=== PATIENT | female | born 1995 | race Caucasian/White ===

== ENCOUNTER 2021-10-16 16:23 | Emergency (ER) | payer OTHER ==
[~2021-10-16] VITALS: Ht 162.6 cm; Wt 61.8 kg
[2021-10-16 16:24] VITALS: BP 127/73
[2021-10-16] MEDS ORDERED: KETOROLAC 30 MG/ML 1ML VIAL IM ONE (17:40)
== END 2021-10-16 18:25 | disposition home or self-care (01) ==
LOC: M ED 16:23
DX: S60.112A Contusion of left thumb with damage to nail, initial encounter (principal); S60.222A Contusion of left hand, initial encounter; W22.8XXA Striking against or struck by other objects, initial encounter; Y92.89 Other specified places as the place of occurrence of the external cause; Y99.0 Civilian activity done for income or pay
CPT/HCPCS: 73130; 96372; 99282; J1885

== ENCOUNTER 2021-12-23 14:13 | Emergency (ER) | payer OTHER ==
[~2021-12-23] VITALS: Ht 160 cm; Wt 61.9 kg
[2021-12-23] MEDS ORDERED: SERT25TA85 PO (14:20)
[2021-12-23 17:36] VITALS: BP 132/69
== END 2021-12-23 17:47 | disposition home or self-care (01) ==
LOC: M ED 14:13
DX: S90.32XA Contusion of left foot, initial encounter (principal); W22.8XXA Striking against or struck by other objects, initial encounter; Y92.018 Other place in single-family (private) house as the place of occurrence of the external cause; F41.9 Anxiety disorder, unspecified; Z79.899 Other long term (current) drug therapy

== ENCOUNTER 2022-06-12 11:06 | Emergency (ER) | payer OTHER ==
[~2022-06-12] VITALS: Ht 162.6 cm; Wt 63.0 kg
[~2022-06-12 11:06] MED LIST: SERT25TA85 PO
[2022-06-12] MEDS ORDERED: KETOROLAC 60MG 2ML VIAL IM ONE (12:40)
[2022-06-12] MEDS ORDERED: CYCL-707 PO (13:18)
[2022-06-12 13:33] VITALS: BP 109/68
== END 2022-06-12 13:34 | disposition home or self-care (01) ==
LOC: M ED 11:06
DX: S76.012A Strain of muscle, fascia and tendon of left hip, initial encounter (principal); W00.0XXA Fall on same level due to ice and snow, initial encounter; F41.9 Anxiety disorder, unspecified; Z79.899 Other long term (current) drug therapy; Z98.890 Other specified postprocedural states
CPT/HCPCS: 72110; 72220; 73502; 96372; 99283; J1885

== ENCOUNTER 2022-08-19 10:57 | Emergency (ER) | payer OTHER ==
[~2022-08-19] VITALS: Ht 162.6 cm; Wt 62.2 kg
[~2022-08-19 10:57] MED LIST changes: +CYCL-707 PO
[2022-08-19 12:28] LABS: BASO # 0.1 10^3/uL (0.0-0.2); BASO % 0.6 % (0.0-1.0); EOS # 0.1 10^3/uL (0.0-0.5); HEMATOCRIT 40.7 % (36.0-47.0); HEMOGLOBIN 13.1 g/dl (12.0-15.5); LYMPH # 1.3 10^3/uL (1.5-5.0); LYMPH % 11.4 % (24.0-44.0); MEAN CORPUSCULAR HEMOGLOBIN 28.2 pg (27.0-33.0); MEAN CORPUSCULAR HGB CONC 32.2 g/dl (32.0-36.5); MEAN CORPUSCULAR VOLUME 87.5 fl (80.0-96.0); MONO # 0.7 10^3/uL (0.0-0.8); MONO % 6.4 % (2.0-8.0); NEUTROPHILS # 8.8 10^3/uL (1.5-8.5); NEUTROPHILS % 80.1 % (36.0-66.0); PLATELET COUNT, AUTOMATED 277 10^3/uL (150-450); RED BLOOD COUNT 4.65 10^6/uL (4.00-5.40)
[2022-08-19 12:52] LABS: LIPASE 33 U/L (12-53)
[2022-08-19 12:54] LABS: ALBUMIN 4.1 G/DL (3.2-5.2); ALKALINE PHOSPHATASE 60 U/L (46-116); ALT/SGPT 10 U/L (7.0-40); AST/SGOT 15 U/L (<34); BILIRUBIN,DIRECT 0.2 MG/DL (<0.4); BILIRUBIN,TOTAL 0.4 MG/DL (0.3-1.2); BLOOD UREA NITROGEN 9 MG/DL (9-23); CARBON DIOXIDE LEVEL 27 MMOL/L (20-31); CHLORIDE LEVEL 105 MMOL/L (98-107); CREATININE FOR GFR 0.73 MG/DL (0.55-1.30); GLOMERULAR FILTRATION RATE > 60.0 (>60); GLUCOSE, FASTING 104 MG/DL (60-100); SODIUM LEVEL 137 MMOL/L (136-145); TOTAL PROTEIN 7.6 G/DL (5.7-8.2)
[2022-08-19 13:14] LABS: HCG, SERUM QUALITATIVE NEGATIVE (NEGATIVE)
[2022-08-19] MEDS ORDERED: KETOROLAC 30 MG/ML 1ML VIAL IV ONE (14:00)
[2022-08-19] MEDS ORDERED: NS 1,000 ML IV ONE (14:00)
[2022-08-19] MEDS ORDERED: ONDANSETRON 4MG 2ML VIAL IV ONE (14:00)
[2022-08-19] MEDS ORDERED: BACT800T5 PO (14:54)
[2022-08-19] MEDS ORDERED: BACTRIM 160MG/800MG DS TAB PO ONE (14:55)
[2022-08-19 15:10] VITALS: BP 110/60
== END 2022-08-19 15:15 | disposition home or self-care (01) ==
LOC: M ED 10:57
DX: N39.0 Urinary tract infection, site not specified (principal); N80.9 Endometriosis, unspecified; R41.840 Attention and concentration deficit
CPT/HCPCS: 74177; 80048; 80076; 81000; 81015; 83690; 84703; 85025; 87086; 96374; 96375; 99284; J1885; J2405

== ENCOUNTER 2023-01-29 10:05 | Day surgery (SDC) | payer OTHER ==
[~2023-01-29] VITALS: Ht 165.1 cm; Wt 60.2 kg
[~2023-01-29 10:05] MED LIST changes: +BACT800T5 PO
[2023-01-29] MEDS ORDERED: LR 1,000 ML IV SCH ×2 (10:35→13:55)
[2023-01-29] MEDS ORDERED: ACET1TAB55 PO (10:48)
[2023-01-29] MEDS ORDERED: PRENTAB7 PO (10:48)
[2023-01-29 11:01] LABS: HEMATOCRIT 40.5 % (36.0-47.0); HEMOGLOBIN 13.2 g/dl (12.0-15.5); MEAN CORPUSCULAR HEMOGLOBIN 28.2 pg (27.0-33.0); MEAN CORPUSCULAR HGB CONC 32.6 g/dl (32.0-36.5); MEAN CORPUSCULAR VOLUME 86.5 fl (80.0-96.0); PLATELET COUNT, AUTOMATED 320 10^3/uL (150-450); RED BLOOD COUNT 4.68 10^6/uL (4.00-5.40)
[2023-01-29] MEDS ORDERED: SILVER NITRATE APPLICATOR (1 = QTY 10) As Ordered ONE (12:59)
[2023-01-29] MEDS ORDERED: LIDOCAINE 1% SDV 30ML VIAL As Ordered ONE (12:59)
[2023-01-29] MEDS ORDERED: ACETAMINOPHEN 1000MG 100ML IV BAG As Ordered ONE (13:18)
[2023-01-29] MEDS ORDERED: MIDAZOLAM INJ 2MG/2ML VIAL As Ordered ONE (13:18)
[2023-01-29] MEDS ORDERED: dexmedeTOMIDine (4MCG/ML)200MCG/50ML BTL (PRECEDEX) As Ordered ONE (13:18)
[2023-01-29] MEDS ORDERED: fentaNYL 100 MCG/2 ML INJECTION As Ordered ONE (13:18)
[2023-01-29] MEDS ORDERED: LIDOCAINE 2% 100MG/5ML SDV (FOR ANES.) As Ordered ONE (13:18)
[2023-01-29] MEDS ORDERED: ONDANSETRON 4MG 2ML VIAL As Ordered ONE (13:18)
[2023-01-29] MEDS ORDERED: propofoL 200 MG/20 ML VIAL As Ordered ONE (13:18)
[2023-01-29] MEDS ORDERED: KETOROLAC 60MG 2ML VIAL As Ordered ONE (13:18)
[2023-01-29] MEDS ORDERED: oxyCODONE 5MG TAB PO PRN (13:55)
[2023-01-29] MEDS ORDERED: HYDROMORPHONE HCL 0.5 MG/ 0.5 ML SYRINGE IV PRN (13:55)
[2023-01-29] MEDS ORDERED: ONDANSETRON 4MG 2ML VIAL IV PRN (13:55)
[2023-01-29] MEDS ORDERED: fentaNYL 100 MCG/2 ML INJECTION IV PRN (13:55)
[2023-01-29 15:10] VITALS: BP 119/63; TEMP 97.9; O2SAT 100
== END 2023-01-29 15:21 | disposition home or self-care (01) ==
LOC: M SDC 10:05
PROVIDERS: ATTEND Obstetrics & Gynecology
DX: N84.0 Polyp of corpus uteri (principal); N96 Recurrent pregnancy loss
CPT/HCPCS: 36415; 58558; 81025; 85027; 86850; 86900; 86901; 88305; J0131; J1100; J1885; J2250; J2405; J3010

== ENCOUNTER 2023-02-24 17:06 | Inpatient (IN) | payer OTHER ==
[~2023-02-24] VITALS: Ht 160 cm; Wt 60.0 kg
[~2023-02-24 17:06] MED LIST changes: +ACET1TAB55 PO; +PRENTAB7 PO
[2023-02-24 18:36] LABS: HEMATOCRIT 40.7 % (36.0-47.0); HEMOGLOBIN 13.3 g/dl (12.0-15.5); MEAN CORPUSCULAR HEMOGLOBIN 27.9 pg (27.0-33.0); MEAN CORPUSCULAR HGB CONC 32.7 g/dl (32.0-36.5); MEAN CORPUSCULAR VOLUME 85.5 fl (80.0-96.0); PLATELET COUNT, AUTOMATED 300 10^3/uL (150-450); RED BLOOD COUNT 4.76 10^6/uL (4.00-5.40); WHITE BLOOD COUNT 11.9 10^3/uL (4.0-10.0)
[2023-02-24 19:01] LABS: AMPHETAMINES LEVEL URINE NEGATIVE (NEGATIVE); BARBITURATES URINE NEGATIVE (NEGATIVE); COCAINE METABOLITE URINE NEGATIVE (NEGATIVE); METHADONE URINE NEGATIVE (NEGATIVE)
[2023-02-24 19:02] LABS: BENZODIAZEPINES URINE NEGATIVE (NEGATIVE); CANNABINOIDS URINE NEGATIVE (NEGATIVE); OPIATES URINE NEGATIVE (NEGATIVE); PHENCYCLIDINE URINE NEGATIVE (NEGATIVE)
[2023-02-24 19:02] LABS: ETHYL ALCOHOL (ETHANOL) 0.007 % (0.000-0.010)
[2023-02-24 19:04] LABS: ALBUMIN 4.1 G/DL (3.2-5.2); ALKALINE PHOSPHATASE 64 U/L (46-116); ALT/SGPT 16 U/L (7.0-40); AST/SGOT 23 U/L (<34); BILIRUBIN,DIRECT 0.2 MG/DL (<0.4); BILIRUBIN,TOTAL 0.5 MG/DL (0.3-1.2); BLOOD UREA NITROGEN 9 MG/DL (9-23); CALCIUM LEVEL 9.1 MG/DL (8.5-10.1); CARBON DIOXIDE LEVEL 25 MMOL/L (20-31); CHLORIDE LEVEL 106 MMOL/L (98-107); CREATININE FOR GFR 0.69 MG/DL (0.55-1.30); GLOMERULAR FILTRATION RATE > 60.0 (>60); GLUCOSE, FASTING 83 MG/DL (60-100); POTASSIUM SERUM 3.8 MMOL/L (3.5-5.1); SALICYLATE LEVEL < 3.0 MG/DL (<30); SODIUM LEVEL 140 MMOL/L (136-145); TOTAL PROTEIN 7.7 G/DL (5.7-8.2)
[2023-02-24 19:08] LABS: THYROID STIMULATING HORMONE 1.928 uIU/ML (0.55-4.78)
[2023-02-24 19:32] LABS: HCG, SERUM QUALITATIVE NEGATIVE (NEGATIVE)
[2023-02-24] MEDS ORDERED: IBUPROFEN 400MG TAB PO PRN (21:55)
[2023-02-24] MEDS ORDERED: MOM 30ML SUSPENSION UDC PO PRN (21:55)
[2023-02-24] MEDS ORDERED: MAALOX 30 ML SUSP *UDC PO PRN (21:55)
[2023-02-24] MEDS ORDERED: diphenhydrAMINE 25MG CAP PO PRN (21:55)
[2023-02-24] MEDS ORDERED: traZODone 50 MG TAB PO PRN (21:55)
[2023-02-24] MEDS ORDERED: OLANZapine ORAL DISINTEGRATING TAB 5MG PO PRN (21:55)
[2023-02-24] MEDS ORDERED: ACETAMINOPHEN TAB 650MG DOSE (2X325MG) PO PRN (21:55)
[2023-02-24] MEDS ORDERED: MULTTAB20 PO (22:01)
[2023-02-24] MEDS ORDERED: HOME MED LIST COMPLETE! XX SCH (22:05)
[2023-02-25 07:00] VITALS: BP 124/66; TEMP 98.3; O2SAT 99
[2023-02-25] MEDS: SERTRALINE HCL 50 MG TAB PO SCH (11:00)
[2023-02-25] MEDS ORDERED: INFLUENZA QUADRIVALENT PF VACCINE 0.5ML SYRINGE IM.IMMUN ONE (12:00)
[2023-02-25 16:35] VITALS: BP 117/64; TEMP 98.9; O2SAT 98
[2023-02-26 06:09] VITALS: BP 110/55; TEMP 98.6; O2SAT 97
[2023-02-26] MEDS: SERTRALINE HCL 50 MG TAB PO SCH (08:00)
[2023-02-26 18:30] VITALS: BP 124/66; TEMP 98.1
[2023-02-27 06:16] VITALS: BP 107/51; TEMP 98.6; O2SAT 98
[2023-02-27] MEDS ORDERED: SERT50TA29 PO (07:59)
[2023-02-27] MEDS ORDERED: TRAZ-252 PO (07:59)
[2023-02-27] MEDS: SERTRALINE HCL 50 MG TAB PO SCH (09:19)
== END 2023-02-27 13:40 | disposition home or self-care (01) | DRG 881 ==
LOC: M ED 17:06 → M ED INP 21:55 → M PSY 02-25 02:37
PROVIDERS: ADMIT Student in an Organized Health Care Education/Training Program; ATTEND Student in an Organized Health Care Education/Training Program
DX: F32.A Depression, unspecified (principal); F43.20 Adjustment disorder, unspecified; Z91.82 Personal history of military deployment; Z63.0 Problems in relationship with spouse or partner; Z63.4 Disappearance and death of family member; Z91.414 Personal history of adult intimate partner abuse

== ENCOUNTER → 2023-05-13 | Outpatient (REF) | payer OTHER ==
[~2023-05-13] MED LIST changes: +MULTTAB20 PO; +SERT50TA29 PO; +TRAZ-252 PO
[2023-05-13 17:45] LABS: APPEARANCE, URINE HAZY (CLEAR); BACTERIA, URINE AUTO NEGATIVE (NEGATIVE); BILIRUBIN, URINE AUTO NEGATIVE (NEGATIVE); BLOOD, URINE BLOOD NEGATIVE (NEGATIVE); COLOR, URINE YELLOW (YELLOW); GLUCOSE, URINE (UA) AUTO NEGATIVE (NEGATIVE); KETONE, URINE AUTO TRACE mg/dL (NEGATIVE); LEUKOCYTE ESTERASE, URINE AUTO NEGATIVE (NEGATIVE); MUCUS, URINE SMALL (NEGATIVE); NITRITE, URINE AUTO NEGATIVE (NEGATIVE); PROTEIN, URINE AUTO 1+ mg/dL (NEGATIVE); RBC, URINE AUTO 0 /HPF (0-3); SPECIFIC GRAVITY URINE AUTO 1.029 (1.002-1.035); SQUAMOUS EPITHELIAL CELL UR AU 3 /HPF (0-6); WBC, URINE AUTO 1 /HPF (0-3)
== END ==
LOC: M SMT 16:37
PROVIDERS: ATTEND Physician Assistant
DX: N30.90 Cystitis, unspecified without hematuria (principal)

== ENCOUNTER → 2023-05-27 | Outpatient (CLI) | payer OTHER | LOC: M RAD 15:03 → M PLAIMG 15:03 | PROVIDERS: ATTEND Physician Assistant | DX: Z87.442 Personal history of urinary calculi (principal) ==